=== PATIENT | female | born 1995 | race Caucasian/White ===

== ENCOUNTER 2018-11-18 01:59 | Emergency (ER) | payer OTHER, SELFPAY ==
[2018-11-18] MEDS ORDERED: Ketorolac Tromethamine 30 MG/ML VIAL ONE (02:56)
[2018-11-18] MEDS ORDERED: Metoclopramide HCl 10 MG TAB ONE (02:56)
[2018-11-18] MEDS ORDERED: Ondansetron ODT 8 MG TAB ONE (02:56)
== END 2018-11-18 03:20 | disposition home or self-care (01) ==
LOC: ERS 01:59
DX: S09.90XA Unspecified injury of head, initial encounter (principal); G43.909 Migraine, unspecified, not intractable, without status migrainosus; W22.8XXA Striking against or struck by other objects, initial encounter
CPT/HCPCS: 96372; J1885; J8597